=== PATIENT | male | born 1995 | race Hispanic/Latino ===

== ENCOUNTER 2018-04-10 21:21 | Emergency (ER) | payer SELFPAY ==
[2018-04-10 22:08] LABS: Urine Blood 1+ (NEG); Urine Glucose NEGATIVE (NEG); Urine Protein NEGATIVE (NEG)
--- NOTE | 2018-04-10 23:37 | EDPHYS ---
Physician Documentation [facility] Name: Grover Blackmon Age: 22 yrs Sex: Male : 1995 Arrival Date: 04/10/2018 Time: 21:24 Bed 20 Private MD: ED Physician Reginald Springer HPI: 04/10 22:38 This 22 yrs old Male presents to ER via Ambulatory with complaints of Flank rn Pain, Urinary Problem. 22:38 The patient complains of pain in the right mid back. The pain does not radiate. Onset: rn The symptoms/episode began/occurred 1 week(s) ago. Modifying factors: The symptoms are alleviated by nothing. the symptoms are aggravated by nothing. Severity of pain: At its worst the pain was mild in the emergency department the pain is unchanged. The patient has not experienced similar symptoms in the past. The patient has been recently seen by a physician:. Reports recently evaluated by pcp, yehuda nova UTI, given abx, noticed hematuria and repeat urine did not show UTI, told to get outpt cat scan, didn't, reports increased hematuria and still having pain, so came in here for evaluation. Father with hx of stones, but none in patient. No trauma. . Historical: - Allergies: 21:34 No Known Allergies; ch - Home Meds: 21:34 None [Active]; ch - PMHx: 21:34 "something was wrong with my bladder a year go, I think it was from drinking etoh"; ch - PSHx: 21:34 None; ch - Immunization history:: Adult Immunizations up to date, Last tetanus immunization: not indicated for visit today. Flu vaccine is not up to date. - Social history:: Smoking status: Patient/guardian denies using tobacco, Patient/guardian denies using alcohol, street drugs. - Ebola Screening: : Patient negative for fever greater than or equal to 101.5 degrees Fahrenheit, and additional compatible Ebola Virus Disease symptoms Patient denies exposure to infectious person Patient denies travel to an Ebola-affected area in the 21 days before illness onset No symptoms or risks identified at this time. - Family history:: not pertinent. - Hospitalizations: : No recent hospitalization is reported. ROS: 22:40 Constitutional: Negative for fever, chills, and weight loss, Eyes: Negative for injury, rn pain, redness, and discharge, Neck: Negative for injury, pain, and swelling, Cardiovascular: Negative for chest pain, palpitations, and edema, Respiratory: Negative for shortness of breath, cough, wheezing, and pleuritic chest pain, Abdomen/GI: Negative for abdominal pain, nausea, vomiting, diarrhea, and constipation, Back: + right flank pain and hematuria MS/Extremity: Negative for injury and deformity, Skin: Negative for injury, rash, and discoloration, Neuro: Negative for headache, weakness, numbness, tingling, and seizure. Exam: 22:40 Constitutional: This is a well developed, well nourished patient who is awake, alert, rn and in no acute distress. Head/Face: Normocephalic, atraumatic. ENT: MMM Abdomen/GI: soft, non-tender Back: No spinal tenderness. No costovertebral tenderness. Full range of motion. Skin: Warm, dry with normal turgor. Normal color with no rashes, no lesions, and no evidence of cellulitis. MS/ Extremity: Pulses equal, no cyanosis. Neurovascular intact. Full, normal range of motion. Equal circumference. Neuro: Awake and alert, GCS 15, oriented to person, place, time, and situation. Cranial nerves II-XII grossly intact. Motor strength 5/5 in all extremities. Sensory grossly intact. Vital Signs: 21:34 BP 132 / 73; Pulse 101; Resp 19; Temp 97.7; Pulse Ox 100% on R/A; Weight 88 kg; Height ch 5 ft. 4 in. (162.56 cm); Pain 6/10; 23:36 BP 118 / 55; Pulse 65; Resp 18; Pulse Ox 99% on R/A; tl2 21:34 Body Mass Index 33.30 (88.00 kg, 162.56 cm) ch MDM: 21:33 Patient medically screened. rn 23:35 Differential diagnosis: nephrolithiasis, UTI, diverticulitis, pancreatitis. Data rn reviewed: vital signs, nurses notes, lab test result(s), radiologic studies, CT scan, and as a result, I will discharge patient. Counseling: I had a detailed discussion with the patient and/or guardian regarding: the historical points, exam findings, and any diagnostic results supporting the discharge/admit diagnosis, lab results, radiology results, the need for outpatient follow up, to return to the emergency department if symptoms worsen or persist or if there are any questions or concerns that arise at home. Special discussion: I discussed with the patient/guardian in detail that at this point there is no indication for admission to the hospital. It is understood, however, that if the symptoms persist or worsen the patient needs to return immediately for re-evaluation. Based on the history and exam findings, there is no indication for further emergent testing or inpatient evaluation. I discussed with the patient/guardian the need to see the urologist for further evaluation of the symptoms. 04/10 21:51 Order name: Urine Dipstick--Ancillary (enter results) ag4 04/10 21:50 Order name: CT Stone Protocol rn Administered Medications: No medications were administered Disposition: 04/10/18 23:36 Discharged to Home. Impression: Cystitis, unspecified with hematuria. - Condition is Stable. - Discharge Instructions: Urinary Tract Infection, Adult. - Prescriptions for Macrobid 100 mg Oral Capsule - take 1 capsule by ORAL route every 12 hours for 10 days; 20 capsule. - Medication Reconciliation Form, Thank You Letter, Antibiotic Education, Prescription Opioid Use form. - Follow up: Private Physician; When: As needed; Reason: Recheck today's complaints, Re-evaluation by your physician. - Problem is new. - Symptoms have improved. Signatures: Dispatcher [employer] EDYu Zapata RN RN Reginald Hannah MD MD rn Knox, Taylor, RN RN tl2 Corrections: (The following items were deleted from the chart) 23:44 23:36 04/10/2018 23:36 Discharged to Home. Impression: Cystitis, unspecified with tl2 hematuria. Condition is Stable. Forms are Medication Reconciliation Form, Thank You Letter, Antibiotic Education, Prescription Opioid Use. Follow up: Private Physician; When: As needed; Reason: Recheck today's complaints, Re-evaluation by your physician. Problem is new. Symptoms have improved. rn
--- NOTE | 2018-04-10 23:37 | ER ---
Nurse's Notes [facility] Name: Grover Blackmon Age: 22 yrs Sex: Male : 1995 Arrival Date: 04/10/2018 Time: 21:24 Bed 20 Private MD: Diagnosis: Cystitis, unspecified with hematuria Presentation: 04/10 21:31 Presenting complaint: Patient states: flank pain for one week, saw REGISTERED NURSE CARDIAC, took flagyl and ch cipro for one week, finished yesterday. no signs of infection in second urine sample, but still had blood. today I saw blood in my urine. Transition of care: patient was not received from another setting of care. Onset of symptoms was April 03, 2018. Risk Assessment: Do you want to hurt yourself or someone else? Patient reports no desire to harm self or others. Initial Sepsis Screen: Does the patient meet any 2 criteria? No. Patient's initial sepsis screen is negative. Does the patient have a suspected source of infection? No. Patient's initial sepsis screen is negative. Care prior to arrival: None. 21:31 Method Of Arrival: Ambulatory 21:31 Acuity: NASH 3 ch Triage Assessment: 21:34 General: Appears in no apparent distress. comfortable, Behavior is calm, cooperative, ch appropriate for age. Pain: Complains of pain in right flank, anterior aspect of right lateral abdomen and posterior aspect of right lateral abdomen Pain currently is 6 out of 10 on a pain scale. at worst was 10 out of 10 on a pain scale. Historical: - Allergies: 21:34 No Known Allergies; - Home Meds: 21:34 None [Active]; - PMHx: 21:34 "something was wrong with my bladder a year go, I think it was from drinking etoh"; - PSHx: 21:34 None; - Immunization history:: Adult Immunizations up to date, Last tetanus immunization: not indicated for visit today. Flu vaccine is not up to date. - Social history:: Smoking status: Patient/guardian denies using tobacco, Patient/guardian denies using alcohol, street drugs. - Ebola Screening: : Patient negative for fever greater than or equal to 101.5 degrees Fahrenheit, and additional compatible Ebola Virus Disease symptoms Patient denies exposure to infectious person Patient denies travel to an Ebola-affected area in the 21 days before illness onset No symptoms or risks identified at this time. - Family history:: not pertinent. - Hospitalizations: : No recent hospitalization is reported. Screenin:35 Abuse screen: Denies threats or abuse. Denies injuries from another. Nutritional screening: No deficits noted. Tuberculosis screening: No symptoms or risk factors identified. Fall Risk None identified. Assessment: 22:21 General: Appears in no apparent distress. comfortable, Behavior is calm, cooperative, tl2 appropriate for age. Pain: Denies pain. Neuro: Level of Consciousness is awake, alert, obeys commands, Oriented to person, place, time, situation. Cardiovascular: Denies chest pain. Respiratory: Airway is patent Respiratory effort is even, unlabored, Respiratory pattern is regular, symmetrical. GI: No signs and/or symptoms were reported involving the gastrointestinal system. : Urine is blood tinged, Reports pain urgency. Derm: Skin is pink, warm \\T\\ dry. 23:43 Reassessment: Patient appears in no apparent distress at this time. Patient and/or tl2 family updated on plan of care and expected duration. Pain level reassessed. Patient is alert, oriented x 3, equal unlabored respirations, skin warm/dry/pink. pt verbalized understanding of discharge instructions, need for follow up and prescription usage. Vital Signs: 21:34 BP 132 / 73; Pulse 101; Resp 19; Temp 97.7; Pulse Ox 100% on R/A; Weight 88 kg; Height 5 ft. 4 in. (162.56 cm); Pain 6/10; 23:36 BP 118 / 55; Pulse 65; Resp 18; Pulse Ox 99% on R/A; tl2 21:34 Body Mass Index 33.30 (88.00 kg, 162.56 cm) ED Course: 21:24 Patient arrived in ED. es 21:33 Reginald Springer MD is Attending Physician. rn 21:33 Triage completed. 21:34 Arm band placed on left wrist. Patient placed in an exam room, on a stretcher, on pulse oximetry. 21:35 Patient has correct armband on for positive identification. Bed in low position. Call light in reach. Side rails up X 1. 21:35 Urine collected: clean catch specimen. 21:39 Carolin Reyes, RN is Primary Nurse. tl2 22:15 CT completed. Patient tolerated procedure well. Patient moved back from CT. bq 22:23 CT Stone Protocol In Process Unspecified. EDMS 23:43 No provider procedures requiring assistance completed. Patient did not have IV access tl2 during this emergency room visit. Administered Medications: No medications were administered Outcome: 23:36 Discharge ordered by . rn 23:43 Discharged to home ambulatory, with family. tl2 23:43 Condition: stable 23:43 Discharge instructions given to patient, Instructed on discharge instructions, follow up and referral plans. medication usage, Demonstrated understanding of instructions, follow-up care, medications, Prescriptions given X 1. 23:44 Patient left the ED. tl2 Signatures: Dispatcher [employer] Yu Saucedo, RN RN Eunice Card Betty bq Nieto, Roman, MD MD rn Knox, Taylor, RN RN tl2
--- NOTE | 2018-04-11 12:35 | RAD REPORT ---
EXAM DESCRIPTION: CT - Stone Protocol - 04/11/2018 5:45 am CLINICAL HISTORY: Flank pain. right flank pain, hematuria COMPARISON: No comparisons TECHNIQUE: Axial images were obtained without oral or IV contrast. Lack of contrast limits solid org an and vascular assessment. The [id number] spans the entirety of the system partially obscuring uppermost abdomen and lung bases. Coronal reformatted images were obtained and reviewed. All CT scans are performed using dose optimization technique as appropriate and may include automated exposure control or mA/KV adjustment according to patient size. FINDINGS: The lower lung randhawa are clear. Imaged portions of the liver and spleen show no suspicious findings on non-contrast imaging. The panc reas and adrenal glands are normal. No pathologic lymphadenopathy in the abdomen or pelvis. No urinary tract stones or obstructive uropathy. Subtle thickening of the urinary bladder wall seen. No bowel obstruction, free air, free fluid or abscess. The appendix is not identified as a discrete s tructure, however, no secondary findings of appendicitis are identified. No significant bony abnormality. IMPRESSION: No urinary tract stones or obstructive uropathy. Subtle thickening of the urinary bladder wall is seen suggesting cystitis. Advise correlation with ur inalysis.
== END 2018-04-10 23:44 | disposition home or self-care (01) ==
LOC: ER 21:21
DX: N30.91 Cystitis, unspecified with hematuria (principal)
CPT/HCPCS: 74176; 76377; 81003; 99284